=== PATIENT | male | born 1975 | race Caucasian/White ===

== ENCOUNTER 2016-07-09 20:49 | Emergency (ER) | payer SELFPAY ==
[2016-07-09 22:17] LABS: PLATELET COUNT 342 x10^3mcL (130-400); RED CELL DISTRIBUTION WIDTH 13.5 % (11.5-14.5)
[2016-07-09 22:28] LABS: CALCIUM 8.3 mg/dL (8.5-10.1); CARBON DIOXIDE 24.9 mmol/L (21-32); CHLORIDE SERUM 99 mmol/L (98-107); CREATININE SERUM 1.2 mg/dL (0.7-1.3); GFR1 > 60 mL/min; GLUCOSE SERUM 116 mg/dL (74-106); POTASSIUM SERUM 3.7 mmol/L (3.5-5.1); SODIUM SERUM 134 mmol/L (136-145)
[2016-07-09 22:32] LABS: ALBUMIN 2.8 g/dL (3.4-5.0); ALKALINE PHOSPHATASE 153 U/L (46-116); ALT/SGPT 34 U/L (16-63); AMYLASE 77 U/L (25-115); AST/SGOT 25 U/L (15-37); BILIRUBIN TOTAL 0.4 mg/dL (0.20-1.00); LIPASE 272 IU/L (73-393); TOTAL PROTEIN, SERUM 8.2 g/dL (6.4-8.2)
[2016-07-09 23:48] LABS: UA SPECIFIC GRAVITY 1.025 (1.005-1.035); microscopic required? YES; urine erythrocyte NEGATIVE (NEGATIVE)
[2016-07-10 00:03] VITALS: BP 102/63
== END 2016-07-10 00:03 | disposition home or self-care (01) ==
LOC: ED 20:49
PROVIDERS: Emergency Medicine
DX: S20.219A Contusion of unspecified front wall of thorax, initial encounter (principal); F07.81 Postconcussional syndrome; S30.1XXA Contusion of abdominal wall, initial encounter; V89.2XXA Person injured in unspecified motor-vehicle accident, traffic, initial encounter; Y93.89 Activity, other specified; Y92.89 Other specified places as the place of occurrence of the external cause; Y99.8 Other external cause status

== ENCOUNTER 2018-10-31 16:00 | Emergency (ER) | payer OTHER ==
[~2018-10-31] VITALS: Ht 172.7 cm; Wt 67.1 kg
[2018-10-31 16:36] LABS: BASOPHIL % 0.4 % (0-2); PLATELET COUNT 275 x10^3mcL (130-400); RED CELL DISTRIBUTION WIDTH 13.7 % (11.5-14.5)
[2018-10-31 16:46] LABS: CALCIUM 9.1 mg/dL (8.5-10.1); CHLORIDE SERUM 100 mmol/L (98-107); CREATININE SERUM 1.1 mg/dL (0.7-1.3); GFR1 > 60 mL/min; GLUCOSE SERUM 94 mg/dL (74-106); POTASSIUM SERUM 4.2 mmol/L (3.5-5.1); SODIUM SERUM 135 mmol/L (136-145)
[2018-10-31 16:48] LABS: ALKALINE PHOSPHATASE 87 U/L (46-116); ALT/SGPT 17 U/L (16-63); AST/SGOT 51 U/L (15-37); BILIRUBIN TOTAL 0.4 mg/dL (0.20-1.00)
[2018-10-31 16:49] LABS: ALBUMIN 2.2 g/dL (3.4-5.0); TOTAL PROTEIN, SERUM 9.9 g/dL (6.4-8.2)
[2018-10-31 18:38] VITALS: BP 106/73
== END 2018-10-31 18:38 | disposition home or self-care (01) ==
LOC: ED 16:00
DX: J18.9 Pneumonia, unspecified organism (principal)
CPT/HCPCS: 36415

== ENCOUNTER 2018-11-14 13:26 | Inpatient (IN) | payer OTHER ==
[~2018-11-14] VITALS: Ht 172.7 cm; Wt 62.2 kg
[2018-11-14 13:33] VITALS: Ht 172.7 cm; Wt 62.2 kg
[2018-11-14 14:29] LABS: CALCIUM 8.4 mg/dL (8.5-10.1); CARBON DIOXIDE 21.3 mmol/L (21-32); CHLORIDE SERUM 92 mmol/L (98-107); CREATININE SERUM 1.1 mg/dL (0.7-1.3); GFR1 > 60 mL/min; GLUCOSE SERUM 101 mg/dL (74-106); POTASSIUM SERUM 4.4 mmol/L (3.5-5.1); SODIUM SERUM 126 mmol/L (136-145)
[2018-11-14 14:30] LABS: BASOPHIL % 0.1 % (0-2); PLATELET COUNT 384 x10^3mcL (130-400); RED CELL DISTRIBUTION WIDTH 12.3 % (11.5-14.5)
[2018-11-14 14:42] LABS: ALKALINE PHOSPHATASE 168 U/L (46-116); ALT/SGPT 60 U/L (16-63); AST/SGOT 100 U/L (15-37); BILIRUBIN TOTAL 0.4 mg/dL (0.20-1.00); LIPASE 207 IU/L (73-393); T4(THYROXINE) 8.2 ug/dL (4.7-13.3)
[2018-11-14 14:43] LABS: ALBUMIN 1.8 g/dL (3.4-5.0); CHOLESTEROL 96 mg/dL (<200); TOTAL PROTEIN, SERUM 9.8 g/dL (6.4-8.2)
[2018-11-14 15:01] LABS: microscopic required? YES; urine erythrocyte 1+ (NEGATIVE)
[2018-11-14 15:09] LABS: AMPHETAMINE QUAL UR NONE DETECTED (See below)
[2018-11-14] MEDS ORDERED: DOXYCYCLINE HY100 MG PO (15:23)
[2018-11-14 17:00] VITALS: BP 101/62
[2018-11-14 20:53] VITALS: BP 102/63
[2018-11-15 05:35] VITALS: BP 104/68
[2018-11-15 07:42] LABS: CALCIUM 7.9 mg/dL (8.5-10.1); CARBON DIOXIDE 21.3 mmol/L (21-32); CHLORIDE SERUM 102 mmol/L (98-107); CREATININE SERUM 0.9 mg/dL (0.7-1.3); GFR1 > 60 mL/min; GLUCOSE SERUM 125 mg/dL (74-106); PHOSPHOROUS 3.8 mg/dL (2.5-4.9); POTASSIUM SERUM 4.5 mmol/L (3.5-5.1); SODIUM SERUM 133 mmol/L (136-145)
[2018-11-15 07:58] LABS: PLATELET COUNT 323 x10^3mcL (130-400); RED CELL DISTRIBUTION WIDTH 13.4 % (11.5-14.5)
[2018-11-15 09:43] VITALS: BP 103/67
[2018-11-15 10:16] LABS: PLATELET COUNT 321 x10^3mcL (130-400); RED CELL DISTRIBUTION WIDTH 13.9 % (11.5-14.5)
[2018-11-15 11:18] LABS: MONOCYTE 12 % (0-7); SEGMENTED NEUTROPHILS 83 % (37-75)
[2018-11-15 11:19] LABS: BAND NEUTROPHIL 0 % (0-10); BASOPHIL 0 % (0-2); PLATELET MORPHOLOGY PLATELETS NORMAL; rbc morphology (normal/abnorm) NORMAL (NORMAL)
[2018-11-15 11:46] LABS: MONOCYTE 5 % (0-7); SEGMENTED NEUTROPHILS 92 % (37-75)
[2018-11-15 12:05] LABS: rbc morphology (normal/abnorm) NORMAL (NORMAL)
[2018-11-15 13:57] VITALS: BP 107/74
[2018-11-15 17:15] VITALS: BP 109/70
[2018-11-15 20:54] VITALS: BP 99/64
[2018-11-16 04:53] VITALS: BP 110/71
[2018-11-16 06:10] LABS: PLATELET COUNT 376 x10^3mcL (130-400); RED CELL DISTRIBUTION WIDTH 13.6 % (11.5-14.5)
[2018-11-16 06:29] LABS: CARBON DIOXIDE 21.5 mmol/L (21-32); CHLORIDE SERUM 105 mmol/L (98-107); CREATININE SERUM 0.9 mg/dL (0.7-1.3); GFR1 > 60 mL/min; GLUCOSE SERUM 123 mg/dL (74-106); MAGNESIUM 2.2 mg/dL (1.8-2.4); PHOSPHOROUS 2.8 mg/dL (2.5-4.9); POTASSIUM SERUM 4.6 mmol/L (3.5-5.1); SODIUM SERUM 137 mmol/L (136-145)
[2018-11-16 06:30] LABS: BASOPHIL % 0 % (0-2)
[2018-11-16 08:34] VITALS: BP 102/66
[2018-11-16 14:23] VITALS: BP 107/77
[2018-11-16 18:20] VITALS: BP 111/65
[2018-11-16 20:17] VITALS: BP 99/60
[2018-11-17 06:06] VITALS: BP 113/81
[2018-11-17 06:48] LABS: RED CELL DISTRIBUTION WIDTH 13.9 % (11.5-14.5)
[2018-11-17 07:09] LABS: BASOPHIL % 0 % (0-2); PLATELET COUNT 414 x10^3mcL (130-400)
[2018-11-17 07:21] LABS: CALCIUM 8.3 mg/dL (8.5-10.1); CARBON DIOXIDE 21.9 mmol/L (21-32); CHLORIDE SERUM 103 mmol/L (98-107); CREATININE SERUM 0.9 mg/dL (0.7-1.3); GFR1 > 60 mL/min; GLUCOSE SERUM 135 mg/dL (74-106); MAGNESIUM 2.2 mg/dL (1.8-2.4); PHOSPHOROUS 2.5 mg/dL (2.5-4.9); POTASSIUM SERUM 4.6 mmol/L (3.5-5.1); SODIUM SERUM 135 mmol/L (136-145)
[2018-11-17 08:19] VITALS: BP 103/69
[2018-11-17 10:28] VITALS: BP 103/69
[2018-11-17 18:37] VITALS: BP 117/75
[2018-11-17 21:09] VITALS: BP 110/68
[2018-11-18 06:31] LABS: BASOPHIL % 0.1 % (0-2); RED CELL DISTRIBUTION WIDTH 13.8 % (11.5-14.5)
[2018-11-18 06:45] LABS: CALCIUM 8.2 mg/dL (8.5-10.1); CARBON DIOXIDE 19.9 mmol/L (21-32); CHLORIDE SERUM 100 mmol/L (98-107); GFR1 > 60 mL/min; GLUCOSE SERUM 133 mg/dL (74-106); POTASSIUM SERUM 4.6 mmol/L (3.5-5.1); SODIUM SERUM 133 mmol/L (136-145)
[2018-11-18 07:04] LABS: PLATELET COUNT 409 x10^3mcL (130-400)
[2018-11-18 09:10] VITALS: BP 92/55
[2018-11-18 16:06] VITALS: BP 106/66
[2018-11-18 22:00] VITALS: BP 105/60
[2018-11-19 05:01] VITALS: BP 101/64
[2018-11-19 05:38] LABS: CALCIUM 8.6 mg/dL (8.5-10.1); CARBON DIOXIDE 19.9 mmol/L (21-32); CHLORIDE SERUM 103 mmol/L (98-107); CREATININE SERUM 0.9 mg/dL (0.7-1.3); GFR1 > 60 mL/min; GLUCOSE SERUM 151 mg/dL (74-106); POTASSIUM SERUM 4.6 mmol/L (3.5-5.1); SODIUM SERUM 134 mmol/L (136-145)
[2018-11-19 05:46] LABS: RED CELL DISTRIBUTION WIDTH 13.8 % (11.5-14.5)
[2018-11-19 07:44] LABS: BASOPHIL % 0 % (0-2); PLATELET COUNT 446 x10^3mcL (130-400)
[2018-11-19 09:18] VITALS: BP 101/61
[2018-11-19 15:45] VITALS: BP 112/68
[2018-11-19 20:35] VITALS: BP 130/88
[2018-11-20 05:35] VITALS: BP 115/76
[2018-11-20 07:14] LABS: RED CELL DISTRIBUTION WIDTH 14.2 % (11.5-14.5)
[2018-11-20 07:20] LABS: BASOPHIL % 0 % (0-2); PLATELET COUNT 456 x10^3mcL (130-400)
[2018-11-20 07:23] LABS: CALCIUM 8.4 mg/dL (8.5-10.1); CARBON DIOXIDE 20.2 mmol/L (21-32); CHLORIDE SERUM 101 mmol/L (98-107); CREATININE SERUM 0.9 mg/dL (0.7-1.3); GFR1 > 60 mL/min; GLUCOSE SERUM 128 mg/dL (74-106); POTASSIUM SERUM 4.5 mmol/L (3.5-5.1); SODIUM SERUM 134 mmol/L (136-145)
[2018-11-20 08:58] VITALS: BP 112/74
[2018-11-20 17:45] VITALS: BP 111/72
[2018-11-20 20:28] VITALS: BP 104/63
[2018-11-21 05:10] VITALS: BP 107/82
[2018-11-21 06:27] LABS: RED CELL DISTRIBUTION WIDTH 13.9 % (11.5-14.5)
[2018-11-21 06:33] LABS: BASOPHIL % 0 % (0-2); PLATELET COUNT 460 x10^3mcL (130-400)
[2018-11-21 06:35] LABS: CALCIUM 8.4 mg/dL (8.5-10.1); CARBON DIOXIDE 21.2 mmol/L (21-32); CHLORIDE SERUM 102 mmol/L (98-107); GFR1 > 60 mL/min; GLUCOSE SERUM 102 mg/dL (74-106); POTASSIUM SERUM 4.2 mmol/L (3.5-5.1); SODIUM SERUM 134 mmol/L (136-145)
[2018-11-21 09:48] VITALS: BP 105/62
[2018-11-21 17:05] VITALS: BP 106/68
[2018-11-21 20:55] VITALS: BP 142/82
[2018-11-22 05:32] VITALS: BP 93/60
[2018-11-22 07:34] LABS: CALCIUM 8.3 mg/dL (8.5-10.1); CARBON DIOXIDE 22.5 mmol/L (21-32); CHLORIDE SERUM 99 mmol/L (98-107); CREATININE SERUM 0.9 mg/dL (0.7-1.3); GFR1 > 60 mL/min; GLUCOSE SERUM 95 mg/dL (74-106); MAGNESIUM 2.2 mg/dL (1.8-2.4); POTASSIUM SERUM 4.2 mmol/L (3.5-5.1); SODIUM SERUM 134 mmol/L (136-145)
[2018-11-22 08:07] LABS: BASOPHIL % 0 % (0-2); PLATELET COUNT 428 x10^3mcL (130-400); RED CELL DISTRIBUTION WIDTH 14.8 % (11.5-14.5)
[2018-11-22 09:21] VITALS: BP 100/74
[2018-11-22 17:50] VITALS: BP 117/79
[2018-11-22 20:00] VITALS: BP 130/81
[2018-11-23 06:03] VITALS: BP 94/57
[2018-11-23 07:25] LABS: PLATELET COUNT 376 x10^3mcL (130-400)
[2018-11-23 07:35] LABS: CARBON DIOXIDE 20.5 mmol/L (21-32); CHLORIDE SERUM 103 mmol/L (98-107); CREATININE SERUM 0.9 mg/dL (0.7-1.3); GFR1 > 60 mL/min; GLUCOSE SERUM 117 mg/dL (74-106); POTASSIUM SERUM 3.6 mmol/L (3.5-5.1); SODIUM SERUM 137 mmol/L (136-145)
[2018-11-23 07:55] LABS: BASOPHIL % 0 % (0-2); RED CELL DISTRIBUTION WIDTH 14.9 % (11.5-14.5)
[2018-11-23 09:14] VITALS: BP 101/58
[2018-11-23] MEDS ORDERED: BACTRIM DS1 TAB PO (13:13)
[2018-11-23] MEDS ORDERED: AZITHROMYCIN250 M1 PO (13:30)
[2018-11-23] MEDS ORDERED: PRE20 PO (13:37)
[2018-11-23] MEDS ORDERED: PREDNISONE20 MG PO ×3 (13:38→13:41)
[2018-11-23] MEDS ORDERED: PREDNISONE1 MG PO (13:43)
[2018-11-23 14:13] VITALS: BP 101/58
== END 2018-11-23 14:55 | disposition home or self-care (01) | DRG 890 ==
LOC: ED 13:26 → DU 15:16 → MU 15:16 → DU 16:47 → MU 11-17 10:59
PROVIDERS: Emergency Medicine; Family Medicine; Internal Medicine; ADMIT General Practice
DX: A41.9 Sepsis, unspecified organism (principal); B20 Human immunodeficiency virus [HIV] disease; J96.01 Acute respiratory failure with hypoxia; E43 Unspecified severe protein-calorie malnutrition; B59 Pneumocystosis; E87.1 Hypo-osmolality and hyponatremia; B37.0 Candidal stomatitis; E87.3 Alkalosis; E86.0 Dehydration; L21.8 Other seborrheic dermatitis; L40.9 Psoriasis, unspecified; F15.10 Other stimulant abuse, uncomplicated; F12.10 Cannabis abuse, uncomplicated; Z87.891 Personal history of nicotine dependence
CPT/HCPCS: 36600; 82962; 83880; 87046; 87046-59; 94150; 97116-GP; 97530-GP; 99406; G0378; J2543; J2930; J3490; J7030; J7512; J7613; J7620; J7644; Q0092

== ENCOUNTER 2019-04-11 11:08 | Inpatient (IN) | payer MEDICAID ==
[~2019-04-11] VITALS: Ht 172.7 cm; Wt 70.8 kg
[~2019-04-11 11:08] MED LIST: AZITHROMYCIN250 M1 PO; BACTRIM DS1 TAB PO; DOXYCYCLINE HY100 MG PO; PRE20 PO; PREDNISONE1 MG PO; PREDNISONE20 MG PO
[2019-04-11 12:41] LABS: CALCIUM 8.5 mg/dL (8.5-10.1); CARBON DIOXIDE 26.4 mmol/L (21-32); CHLORIDE SERUM 106 mmol/L (98-107); GFR1 > 60 mL/min; POTASSIUM SERUM 3.5 mmol/L (3.5-5.1); SODIUM SERUM 141 mmol/L (136-145)
[2019-04-11 12:46] LABS: ALKALINE PHOSPHATASE 185 U/L (46-116); ALT/SGPT 27 U/L (16-63); AST/SGOT 31 U/L (15-37); BILIRUBIN TOTAL 0.26 mg/dL (0.20-1.00)
[2019-04-11 12:49] LABS: ALBUMIN 2.9 g/dL (3.4-5.0); TOTAL PROTEIN, SERUM 9.5 g/dL (6.4-8.2)
[2019-04-11 12:58] LABS: UA SPECIFIC GRAVITY 1.015 (1.005-1.035)
[2019-04-11 12:59] LABS: microscopic required? YES; urine erythrocyte NEGATIVE (NEGATIVE)
[2019-04-11 13:12] LABS: BASOPHIL % 0.1 % (0-2); PLATELET COUNT 192 x10^3mcL (130-400); RED CELL DISTRIBUTION WIDTH 14.1 % (11.5-14.5)
[2019-04-11 18:45] LABS: CHOLESTEROL/HDL RATIO 3.5
[2019-04-11 18:52] LABS: FREE T4 1.03 ng/dL (0.76-1.46); FREE THYROXINE INDEX 1.9 ug/dL (1.4-4.5); T4(THYROXINE) 8.1 ug/dL (4.7-13.3)
[2019-04-11 18:59] LABS: T3 TOTAL 1.4 ng/mL
[2019-04-11 19:18] VITALS: BP 139/89
[2019-04-11 19:26] VITALS: Ht 172.7 cm; Wt 70.8 kg
[2019-04-11 20:53] LABS: AMPHETAMINE QUAL UR NONE DETECTED (See below)
[2019-04-11 21:11] LABS: IRON 50 ug/dL (65-170); TOTAL IRON BINDING CAPACITY 229 ug/dL (250-450)
[2019-04-12 05:40] VITALS: BP 104/77
[2019-04-12 05:42] VITALS: BP 133/86
[2019-04-12 07:32] LABS: CALCIUM 8.3 mg/dL (8.5-10.1); CARBON DIOXIDE 24.9 mmol/L (21-32); CHLORIDE SERUM 110 mmol/L (98-107); CREATININE SERUM 0.9 mg/dL (0.7-1.3); GFR1 > 60 mL/min; GLUCOSE SERUM 88 mg/dL (74-106); MAGNESIUM 2.1 mg/dL (1.8-2.4); PHOSPHOROUS 4.3 mg/dL (2.5-4.9); POTASSIUM SERUM 3.5 mmol/L (3.5-5.1); SODIUM SERUM 141 mmol/L (136-145)
[2019-04-12 07:35] LABS: BASOPHIL % 0.3 % (0-2); PLATELET COUNT 154 x10^3mcL (130-400)
[2019-04-12 07:52] LABS: RED CELL DISTRIBUTION WIDTH 15.2 % (11.5-14.5)
[2019-04-12 08:31] VITALS: BP 125/88
[2019-04-12 13:16] VITALS: BP 128/86
[2019-04-12 16:41] VITALS: BP 117/77
[2019-04-12 16:42] LABS: TOTAL PROTEIN CSF 84.8 mg/dL (15-45)
[2019-04-12 16:54] LABS: APPEARANCE CSF HAZY; COLOR CSF PINK
[2019-04-12 16:55] LABS: RBC CSF 3084 /cumm (0); WBC CSF 4 /cumm (0-5)
[2019-04-12 21:07] VITALS: BP 133/93
[2019-04-13 05:19] VITALS: BP 130/86
[2019-04-13 06:54] LABS: BASOPHIL % 0.4 % (0-2); PLATELET COUNT 165 x10^3mcL (130-400)
[2019-04-13 07:00] LABS: RED CELL DISTRIBUTION WIDTH 15.3 % (11.5-14.5)
[2019-04-13 08:21] VITALS: BP 129/87
[2019-04-13 09:03] LABS: CALCIUM 8.6 mg/dL (8.5-10.1); CARBON DIOXIDE 24 mmol/L (21-32); CHLORIDE SERUM 108 mmol/L (98-107); CREATININE SERUM 0.9 mg/dL (0.7-1.3); GFR1 > 60 mL/min; GLUCOSE SERUM 89 mg/dL (74-106); MAGNESIUM 2.2 mg/dL (1.8-2.4); PHOSPHOROUS 4.2 mg/dL (2.5-4.9); POTASSIUM SERUM 3.7 mmol/L (3.5-5.1); SODIUM SERUM 141 mmol/L (136-145)
[2019-04-13] MEDS ORDERED: ZIT250 PO (09:31)
[2019-04-13] MEDS ORDERED: BACDS PO (09:31)
[2019-04-13] MEDS ORDERED: DIF100 PO (09:32)
[2019-04-13] MEDS ORDERED: MYCLUD PO (09:33)
[2019-04-13 12:00] VITALS: BP 129/87
[2019-04-13 12:46] LABS: ALBUMIN 2.8 g/dL (3.4-5.0); BILIRUBIN DIRECT 0.1 mg/dL (0.0-0.2); BILIRUBIN TOTAL 0.3 mg/dL (0.20-1.00); TOTAL PROTEIN, SERUM 9.1 g/dL (6.4-8.2)
== END 2019-04-13 12:51 | disposition home or self-care (01) | DRG 894 ==
LOC: ED 11:08 → MU 18:30
PROVIDERS: Emergency Medicine; ADMIT Internal Medicine
PROC: 00JU3ZZ Inspection of Spinal Canal, Percutaneous Approach (ICD-10-PCS; principal; 2019-04-12)
DX: B20 Human immunodeficiency virus [HIV] disease (principal); E43 Unspecified severe protein-calorie malnutrition; B37.0 Candidal stomatitis; E86.0 Dehydration; F12.10 Cannabis abuse, uncomplicated; F15.10 Other stimulant abuse, uncomplicated; Z59.0 Homelessness; Z68.23 Body mass index [BMI] 23.0-23.9, adult; Z87.891 Personal history of nicotine dependence
CPT/HCPCS: 62272; 83880; 84439; 87046; 87046-59; G0378; J7030; Q0092; Q9967